=== PATIENT | male | born 1945 | race Caucasian/White ===

== ENCOUNTER 2023-04-17 08:30 | Inpatient (IN) | payer OTHER ==
[~2023-04-17] VITALS: Ht 162.6 cm; Wt 90.7 kg
[~2023-04-17 08:30] MED LIST: AMBIEN10 MG PO; CIPRO750 MG PO; Colace 100MG PO; NEURONTIN PO; PERCOCET 5/3251 TAB PO
[2023-04-17] MEDS ORDERED: NAMENDA10 MG PO (09:06)
[2023-04-17] MEDS ORDERED: ARICEPT10 MG PO (09:06)
[2023-04-17] MEDS ORDERED: ADULT LOW DOSE81 M1 PO (09:07)
[2023-04-17] MEDS ORDERED: PLAVIX75 MG PO (09:07)
[2023-04-17] MEDS ORDERED: COZAAR100 MG PO (09:07)
[2023-04-17] MEDS ORDERED: B-COMPLEX1 EACH PO (09:08)
[2023-04-17] MEDS ORDERED: SIMVASTA PO (09:08)
[2023-04-20] MEDS ORDERED: PERCOCET 5-3251 EACH PO (14:10)
[2023-04-20] MEDS ORDERED: AMOX-CLAV 875-1 EACH PO (14:11)
[2023-04-20] MEDS ORDERED: MEDROLPACK PO (14:11)
[2023-04-20] MEDS ORDERED: COLACE100 MG PO (14:11)
[2023-04-20] MEDS ORDERED: NEURONTIN800 MG PO (14:12)
[2023-04-20] MEDS ORDERED: GABAPENTIN100 M2 PO (14:12)
[2023-04-21 07:22] LABS: CALCIUM 8.2 mg/dL (8.5-10.1); CREATININE SERUM 1.09 mg/dL (0.70-1.30); GFR 65.77; POTASSIUM 4.63 mEq/L (3.5-5.1)
[2023-04-21 07:34] LABS: HEMATOCRIT 44.1 % (39.0-48.0); HEMOGLOBIN 14.4 g/dL (13-16.00); MEAN CELL VOLUME 90.3 fL (80.0-100.00); MEAN CORPUSCULAR HEMOGLOBIN 29.4 pg (27.00-32.0); MEAN CORPUSCULAR HGB CONC 32.6 g/dl (32.0-36.0); PLATELET COUNT 168 K/uL (150-450); RED BLOOD COUNT 4.89 M/uL (4.00-6.00)
== END 2023-04-22 08:01 | disposition home or self-care (01) | DRG 455 ==
LOC: SURH 04-20 06:48 → O/R 04-20 06:48 → SURH 04-20 08:30
PROVIDERS: ADMIT Orthopaedic Surgery Orthopaedic Surgery of the Spine; ATTEND Orthopaedic Surgery Orthopaedic Surgery of the Spine
PROC: 0SG3071 Fusion of Lumbosacral Joint with Autologous Tissue Substitute, Posterior Approach, Posterior Column, Open Approach (ICD-10-PCS; 2023-04-20)
PROC: 0ST40ZZ Resection of Lumbosacral Disc, Open Approach (ICD-10-PCS; 2023-04-20)
PROC: 0QB30ZZ Excision of Left Pelvic Bone, Open Approach (ICD-10-PCS; 2023-04-20)
PROC: 07DR0ZZ Extraction of Iliac Bone Marrow, Open Approach (ICD-10-PCS; 2023-04-20)
PROC: 4A1104G Monitoring of Peripheral Nervous Electrical Activity, Intraoperative, Open Approach (ICD-10-PCS; 2023-04-20)
PROC: 0SG30A0 Fusion of Lumbosacral Joint with Interbody Fusion Device, Anterior Approach, Anterior Column, Open Approach (ICD-10-PCS; principal; 2023-04-20 17:30)
DX: M96.0 Pseudarthrosis after fusion or arthrodesis (principal); M48.07 Spinal stenosis, lumbosacral region; M51.37 Other intervertebral disc degeneration, lumbosacral region; M54.17 Radiculopathy, lumbosacral region